=== PATIENT | male | born 1990 | race Caucasian/White ===

== ENCOUNTER 2017-05-11 01:40 | Emergency (ER) | payer SELFPAY ==
[~2017-05-11] VITALS: Ht 165.1 cm; Wt 84.1 kg
[2017-05-11] MEDS ORDERED: IBUPROFEN 600 MG TABLET PO ONE (03:15)
[2017-05-11] MEDS ORDERED: SODIUM CHLORIDE 0.9% 250 ML IRRIG SOLUTION BOTTLE IRRIG ONE (03:15)
[2017-05-11 03:46] VITALS: BP 139/77
== END 2017-05-11 03:51 | disposition home or self-care (01) ==
LOC: EMS 01:42
DX: S31.010A Laceration without foreign body of lower back and pelvis without penetration into retroperitoneum, initial encounter (principal); M62.830 Muscle spasm of back; M25.511 Pain in right shoulder; F12.90 Cannabis use, unspecified, uncomplicated; W18.02XA Striking against glass with subsequent fall, initial encounter; Y93.89 Activity, other specified; Y92.89 Other specified places as the place of occurrence of the external cause; Y99.8 Other external cause status
CPT/HCPCS: 99283